=== PATIENT | female | born 1960 | race Caucasian/White ===

== ENCOUNTER → 2017-02-28 | Outpatient (CLI) | payer MEDICARE ==
[~2017-02-28] MED LIST: ADVAIR 250-501 EACH INH; ATIVAN 0.5MG0.5 MG PO; ATIVAN 1 MG1 MG PO; DESYREL100 MG PO; HUMIBID LA (MU600 MG PO; NICORETTE 2 MG2 MG PO; PHENOBARBITAL30 MG PO; PHENOBARBITAL32.4 MG PO; PRINIVIL OR ZES10 MG PO; PROVENTIL OR V6.7 GM INH; SEROQUEL100 MG PO; SEROQUEL200 MG PO; TOPAMAX200 MG PO
== END | disposition disaster alternative care site (69) ==
LOC: GAMB 13:42
DX: R45.5 Hostility (principal); S00.81XA Abrasion of other part of head, initial encounter; M54.2 Cervicalgia; M25.511 Pain in right shoulder; R25.3 Fasciculation; E78.5 Hyperlipidemia, unspecified; R45.1 Restlessness and agitation; R46.1 Bizarre personal appearance; Z79.899 Other long term (current) drug therapy; Z86.69 Personal history of other diseases of the nervous system and sense organs; W01.0XXA Fall on same level from slipping, tripping and stumbling without subsequent striking against object, initial encounter
CPT/HCPCS: A0425; A0429